=== PATIENT | female | born 1950 | race Caucasian/White ===

== ENCOUNTER → 2016-12-27 | Outpatient (CLI) | payer BC ==
[~2016-12-27] MED LIST: LANS30CA12 PO
[2016-12-27 12:50] LABS: ALT/SGPT 28 U/L (12-78); BLOOD UREA NITROGEN 13 mg/dl (7-18); BUN/CREATININE RATIO 13.7 (10-20); CARBON DIOXIDE 28 mmol/L (21-32); CHLORIDE 111 mmol/L (98-107); CHOLESTEROL 228 mg/dl (0-200); CREATININE 0.93 mg/dl (0.60-1.20); GLUCOSE 90 mg/dl (70-99); POTASSIUM 4.3 mmol/L (3.5-5.1); SODIUM 143 mmol/L (136-145); TRIGLYCERIDES 111 mg/dl (0-150); VERY LOW DENSITY LIPOPROT CALC 22 mg/dl
[2016-12-27 12:54] LABS: ALB/GLOB RATIO 1.1 (0.9-2); ALKALINE PHOSPHATASE 75 U/L (45-117); AST/SGOT 18 U/L (15-37); CHOLESTEROL/HDL RATIO 3.4; HDL CHOLESTEROL 67 mg/dl; LDL CHOLESTEROL CALCULATED 139 mg/dl
== END | disposition home or self-care (01) ==
LOC: C.LABBFT 07:39
PROVIDERS: ATTEND Internal Medicine
DX: E78.00 Pure hypercholesterolemia, unspecified (principal)

== ENCOUNTER → 2017-05-03 | Outpatient (CLI) | payer BC ==
[~2017-05-03] MED LIST changes: +OPTIRAY 320 IV PRN
--- NOTE | 2017-05-03 14:33 | DIAGNOSTIC IMAGING REPORT ---
CT ANGIOGRAPHY OF THE CHEST, PULMONARY EMBOLUS PROTOCOL CLINICAL HISTORY: Shortness of breath. Known history of pulmonary emboli. COMPARISON STUDY: No previous studies for comparison. TECHNIQUE: Following IV administration of 93 mL of Optiray-320, helical axial images of the chest were obtained utilizing the pulmonary embolus protocol. Maximal intensity projections and sagittal and coronal reformats were viewed on an independent 3D workstation. IV contrast was administered without complication. A dose lowering technique was utilized adhering to the principles of ALARA. CT DOSE: 638.78 mGy.cm FINDINGS: There are numerous linear web-like filling defects throughout the pulmonary arteries which are consistent with pulmonary emboli. The appearance favors chronic pulmonary emboli. There is no central pulmonary embolus. There is no CT evidence of right heart strain. No pulmonary infarct is present. The heart is mildly enlarged. There is no pericardial effusion. Mild dilatation of the ascending aorta, measuring 4 cm at the level the main pulmonary artery is noted. There is no thoracic aortic dissection. There is no thoracic lymphadenopathy. A small hernia is present. Linear opacities within the lungs reflect atelectasis. There is no consolidation to suggest pneumonia. There is no pneumothorax or pleural effusion. A 4 mm right apical nodule shown image 235 is likely benign. Upper abdomen is unremarkable on this exam. IMPRESSION: 1. Numerous linear web-like filling defects throughout the pulmonary arteries consistent with pulmonary emboli. The appearance favors chronic pulmonary emboli. Overall, mild embolus burden. No CT evidence of right heart strain. Borderline dilatation of the central pulmonary arteries which raises the possibility of pulmonary arterial hypertension. If previous CTA of the chest, comparison may be of benefit in determining chronicity. 2. No pulmonary infarct. 3. Mild dilatation of the ascending aorta, measuring 4 cm. No thoracic aortic dissection. 4. 4 mm right upper lobe solid nodule which is likely benign. This could be followed according to the attached recommendations. Please refer to below summary of Fleischner criteria recommendations for follow-up of incidental CT nodules (Gustavo Rodney, Guidelines for management of small pulmonary nodules detected on CT scans: A statement from the Fleischner Society, Radiology 237: [id number].) SOLID NODULES Solitary nodule size: <6 mm * low risk patients: no follow-up needed * high risk patients: optional CT at 12 months Electronically signed by: Sawyer Pete M.D. 05/03/2017 2:32 PM Dictated Date/Time: 05/03/2017 2:17 PM
== END | disposition home or self-care (01) ==
LOC: C.CTS 13:49
PROVIDERS: ATTEND Internal Medicine
DX: I26.99 Other pulmonary embolism without acute cor pulmonale (principal); R91.1 Solitary pulmonary nodule

== ENCOUNTER → 2017-05-15 | Outpatient (CLI) | payer BC ==
[~2017-05-15] MED LIST changes: -OPTIRAY 320 IV PRN
== END | disposition home or self-care (01) ==
LOC: C.LAB 11:56
PROVIDERS: ATTEND Internal Medicine
DX: I26.99 Other pulmonary embolism without acute cor pulmonale (principal)